=== PATIENT | male | born 1970 | race Caucasian/White ===

== ENCOUNTER → 2018-02-27 16:01 | Outpatient (CLI) | payer BC, SELFPAY ==
[2018-02-27 17:36] LABS: D-Dimer Quantitative (DVT/PE) 0.37 FEU/ug/m (0.27-0.49)
== END ==
PROVIDERS: Visit Provider Internal Medicine Critical Care Medicine
DX: I26.99 Other pulmonary embolism without acute cor pulmonale (principal)
CPT/HCPCS: 36415; 85379

== ENCOUNTER 2018-06-23 06:35 | Emergency (ER) | payer BC, SELFPAY ==
[2018-06-23 06:36] VITALS: BP 140/90; PULSE 92; RESP 14; TEMP 36.6; O2SAT 97; BMI 34.6
--- NOTE | 2018-06-23 07:06 | ED.VISSUMM ---
- ER Visit Summary Date of Service: 06/23/18 Chief Complaint: Racing breathing, palpitations History of Present Illness: The patient is a 47 M who presents with what he describes as fast breathing. Started last night. He felt like he had palpitations every 6-10 beats as well. Patient is concerned because a history of pulmonary embolism in the past. He has not had a cough. He has been off his blood thinners for a few months. His PE was provoked by a knee surgery. He feels intermittently short of breath currently. He states this does feel different than his pulmonary embolism. He denies having any chest pain. He denies any other symptoms. Physical Examination: Vital signs reviewed. HEENT exam unremarkable. Heart is regular rate and rhythm without murmurs. Lungs are clear to auscultation. Abdomen is soft and nontender. Extremities reveal no edema. Skin exam normal. Neurologic exam normal. Test Results: EKG sinus rhythm with a rate of 78. No ST changes. Labs are normal except for a d-dimer 0.52. Chest x-ray reveals chronic changes. CTA of the chest reveals small pulmonary embolisms in the bilateral upper lobes and in the left lower lobe Emergency Department Course and Treatment: Patient was given aspirin. His d-dimer was slightly elevated so a CTA was ordered and it does show some small pulmonary emboli. Patient has been off his Eliquis for a couple of months. At this point, I believe that we should restart this. Patient is understanding. He does not want to stay in the hospital. I do not believe he needs to stay in the hospital. His PESI score is 56 which makes him very low risk for adverse complications. Patient will be started on Eliquis again. He will follow-up with Dr. Shahid who followed him previously Treatment Plan: [] Disposition: Discharge Impression: Pulmonary embolisms This note was generated with [employer] software. It may contain incorrect words, spelling, and punctuation that were not noted in review of the chart prior to signing ED Disposition - Plan for ED Patient: Chief Complaint: General Illness Referrals: [facility] [address] Doctor,Out of [Primary Care Provider] -
[2018-06-23 07:18] VITALS: O2SAT 95
[2018-06-23] MEDS: Aspirin 81 MG TAB.CHEW 324 MG PO (07:18)
[2018-06-23 07:27] LABS: Anion Gap 10 (5-15); BUN 18 mg/dL (7-18); BUN/Creat Ratio 14.5 RATIO (10-20); Calcium,Total 8.5 mg/dL (8.5-10.1); Chloride 106 mmol/L (98-107); Creatinine, Serum 1.24 mg/dL (0.70-1.30); EST Glomerular Filtration Rate 67 mL/min (>60); Est Glom Filt Rate - Afr Amer 81 mL/min (>60); Estimated Creatinine Clearance 84.12 ml/min; Glucose 81 mg/dL (74-106); Potassium 3.6 mmol/L (3.5-5.1); Sodium Level 141 mmol/L (136-145)
[2018-06-23 07:33] LABS: Absolute Lymphocyte Count 2.45 X10^3/ul (0.83-4.51); Absolute Neutrophil Count 5.2 X10^3/uL (2.0-7.7); Basophil# 0.05 X10^3/uL; Basophil% 0.6 % (0-1); Eosinophil# 0.18 X10^3/uL; Eosinophils% 2.1 % (0-5); Hematocrit 44.3 % (40-54); Hemoglobin 15.5 g/dl (13.0-16.5); Lymphocyte # 2.45 X10^3/ul (4.0); Lymphocyte % 28.9 % (19-41); Mean Corpuscular Hgb 29.8 pg (27.0-32.0); Mean Platelet Vol. 10.3 fl (6.2-12.0); Monocyte# 0.62 X10^3/uL; Monocyte% 7.3 % (0-10); Neutrophil # 5.17 X10^3/uL (2.7-7.7); Neutrophil % 60.9 % (47-70); Platelet Count 231 K/mm3 (150-450); RBC Distribution Width CV 13.3 % (11.6-14.6); RBC Distribution Width SD 41.6 fl (35.1-43.9); Red Blood Count 5.21 M/mm3 (4.6-6.2); White Blood Count 8.5 K/mm3 (4.4-11.0)
[2018-06-23 07:45] LABS: D-Dimer Quantitative (DVT/PE) 0.52 FEU/ug/m (0.27-0.49)
--- NOTE | 2018-06-23 07:48 | ED.RN ---
lab called with critical lab results Radha mcgowan r0.52. Dr. Beckman made aware. orders to be placed
[2018-06-23 08:12] LABS: POSITIVE COUNT NO; POSITIVE DIFFERENTIAL NO; POSITIVE MORPHOLOGY NO
--- NOTE | 2018-06-23 08:50 | ED.RN ---
CANNOT OBTAIN OLD EKG; MUSE IS DOWN
--- NOTE | 2018-06-23 08:53 | ED.DEP ---
ED Disposition - Plan for ED Patient: Disposition: Home or Assisted Living Chief Complaint: General Illness Diagnosis: Pulmonary embolism Instructions: Pulmonary Embolism Prescriptions: Apixaban [Eliquis] 5 mg PO BID #74 tab Referrals: [facility] Doctor,Out of [Primary Care Provider] -
[2018-06-23] MEDS: APIXABAN 5 MG TABLET 10 MG PO (09:23)
[2018-06-23 09:34] VITALS: BP 124/90; PULSE 75; RESP 14; O2SAT 95
[2018-06-28 15:03] LABS: Protein C Antigen 108 % (60-150); Protein C, Functional 117 % (73-180)
[2018-06-28 15:37] LABS: Anti-Cardiolipin Ab, IgG, Qn < 9 GPL U/mL (0-14); Anti-Cardiolipin Ab, IgM, Qn < 9 MPL U/mL (0-12); Anti-Thrombin 3 AG, Immunol 106 % (72-124); Antithrombin 3 Function 108 % (75-135); Beta-2-Glycoprotein I IgA <9 (0-25); Beta-2-Glycoprotein I IgG <9 (0-20); Beta-2-Glycoprotein I IgM <9 (0-32)
== END 2018-06-23 09:36 | disposition home or self-care (01) ==
PROVIDERS: Emergency Provider Emergency Medicine
DX: I26.99 Other pulmonary embolism without acute cor pulmonale (principal); Z86.711 Personal history of pulmonary embolism
CPT/HCPCS: 71045; 71275; 80048; 81240; 81241; 81291; 84484; 85025; 85300; 85301; 85302; 85303; 85379; 86146; 86147; 93005; 99284; Q9967; A4216

== ENCOUNTER → 2018-10-06 19:59 | Outpatient (CLI) | payer BC, SELFPAY | PROVIDERS: Family Provider Student in an Organized Health Care Education/Training Program; PCP Student in an Organized Health Care Education/Training Program; Visit Provider Internal Medicine Critical Care Medicine | DX: G47.10 Hypersomnia, unspecified (principal) | CPT/HCPCS: 95810 ==

== ENCOUNTER → 2018-12-01 20:00 | Outpatient (CLI) | payer BC, SELFPAY ==
[2018-11-17 16:10] VITALS: BMI 35.9
== END ==
PROVIDERS: Family Provider Student in an Organized Health Care Education/Training Program; PCP Student in an Organized Health Care Education/Training Program; Referring Provider Nurse Practitioner Acute Care; Visit Provider Nurse Practitioner Acute Care
DX: G47.33 Obstructive sleep apnea (adult) (pediatric) (principal)
CPT/HCPCS: 95811

== ENCOUNTER 2019-10-12 20:45 | Emergency (ER) | payer BC, SELFPAY ==
[2019-05-17 06:34] VITALS: BMI 36.8
[2019-10-12 20:46] VITALS: BP 160/93; PULSE 81; RESP 20; TEMP 35.7; O2SAT 99; BMI 38.3
--- NOTE | 2019-10-12 21:40 | ED.VISSUMM ---
- ER Visit Summary Date of Service: 10/12/19 Chief Complaint: Tongue laceration History of Present Illness: The patient is a 48 M who sustained a tongue laceration. He was eating food and bit his tongue. He has tried to get the bleeding to stop but cannot. He is on Eliquis for history of PE. He tried holding pressure for 15 minutes but it still bled for about an hour. He denies any lightheadedness or dizziness. He states that now that he is here the bleeding has slowed down. Physical Examination: Vital signs reviewed. Mouth exam reveals a punctate bite wound on the top of the tongue. There is no bleeding at this time. He denies any pain. The rest of his physical exam is unremarkable Test Results: None performed Emergency Department Course and Treatment: The patient was observed here in the emergency department. There is no return of bleeding. The next time he will try to hold pressure longer to get this to stop. Treatment Plan: [] Disposition: Discharge Impression: Punctate tongue laceration This note was generated with [employer] dictation software. It may contain incorrect words, spelling, and punctuation that were not noted in review of the chart prior to signing ED Disposition - Plan for ED Patient: Disposition: Home or Assisted Living Instructions: LACERATION, All Referrals: Eugene Herman MD [Primary Care Provider] -
[2019-10-12 21:55] VITALS: BP 150/74; PULSE 76; RESP 16; O2SAT 98
== END 2019-10-12 21:56 | disposition home or self-care (01) ==
PROVIDERS: Emergency Provider Emergency Medicine; Family Provider Family Medicine; PCP Family Medicine
DX: S01.552A Open bite of oral cavity, initial encounter (principal); X58.XXXA Exposure to other specified factors, initial encounter; Y93.9 Activity, unspecified; Y92.9 Unspecified place or not applicable; Y99.9 Unspecified external cause status; Z79.01 Long term (current) use of anticoagulants; Z86.711 Personal history of pulmonary embolism
CPT/HCPCS: 99282

== ENCOUNTER → 2019-12-11 16:44 | Outpatient (CLI) | payer BC, SELFPAY ==
[2019-12-11 18:01] LABS: Hematocrit 24.5 % (40-54); Hemoglobin 8.6 g/dL (13.0-16.5); Mean Corp Hgb Conc 35.1 g/dL (32-36); Mean Corpuscular Hgb 33.6 pg (27.0-32.0); Mean Corpuscular Volume 95.7 fL (80-94); Mean Platelet Vol. 12.9 fl (6.2-12.0); POSITIVE COUNT YES; POSITIVE DIFFERENTIAL YES; POSITIVE MORPHOLOGY YES; RBC Distribution Width CV 15.5 % (11.6-14.6); RBC Distribution Width SD 52.5 fl (35.1-43.9); Red Blood Count 2.56 M/mm3 (4.6-6.2); White Blood Count 1.5 K/mm3 (4.4-11.0)
[2019-12-11 18:44] LABS: ALB/GLOB Ratio 1.2 RATIO (0.9-2.4); AST(SGOT) 19 U/L (15-37); Alanine Aminotransfer ALT/SGPT 33 U/L (16-61); Alkaline Phosphatase 63 U/L (45-117); Anion Gap 4 (5-15); BUN 18 mg/dL (7-18); BUN/Creat Ratio 18.9 RATIO (10-20); Calcium,Total 8.8 mg/dL (8.5-10.1); Chloride 108 mmol/L (98-107); Creatinine, Serum 0.95 mg/dL (0.70-1.30); EST Glomerular Filtration Rate 90 mL/min (>60); Est Glom Filt Rate - Afr Amer 108 mL/min (>60); Globulin 3.2 g/dL (2.2-4.2); Glucose 93 mg/dL (74-106); Potassium 3.7 mmol/L (3.5-5.1); Protein, Total 7.2 g/dL (6.4-8.2); Sodium Level 139 mmol/L (136-145); Thyroid Stim Hormone (TSH) 0.79 uIU/mL (0.358-3.74)
[2019-12-11 18:48] LABS: Lymphocyte 70 % (19-41); Monocyte 10 % (0-10); Neutrophil-Segmented 16 % (47-70); Total Cells Counted 50 (MANUAL DIFF)
[2019-12-11 19:31] LABS: Platelet Count 20 K/mm3 (150-450)
[2019-12-11 19:32] LABS: Differential Indicated MANUAL DIFF
[2019-12-11 19:53] LABS: Absolute Neutrophil Count 0.2 X10^3/uL (2.0-7.7)
[2019-12-11 19:54] LABS: Absolute Lymphocyte Count 1.04 X10^3/uL (0.83-4.51)
[2019-12-11 20:01] LABS: Blast 4 % (0-0)
[2019-12-11 20:02] LABS: Macrocytosis RARE
[2019-12-11 20:03] LABS: Platelet Estimate MKD DEC (ADEQ); Polychromasia RARE
[2019-12-12 13:19] LABS: Pathologist Review Reviewed
== END ==
PROVIDERS: PCP Family Medicine; Referring Provider Family Medicine; Visit Provider Family Medicine
DX: R60.0 Localized edema (principal)
CPT/HCPCS: 36415; 80053; 84443; 85025

== ENCOUNTER → 2019-12-12 13:18 | Outpatient (CLI) | payer BC, SELFPAY ==
--- NOTE | 2019-12-12 13:23 | RAD_ITS ---
STUDY: X-RAY CHEST REASON FOR EXAM: Male, 49 years old. Temporary low platelet count -- some sob TECHNIQUE: PA and lateral views of the chest. COMPARISON: Comparison is made with prior examination dated June 23, 2018. FINDINGS: The lungs are clear and expanded. Scattered calcified granulomas. There is no demonstrated pleural abnormality. Normal size heart. Normal mediastinum and aury. Normal visualized pulmonary arteries. Normal visualized aortic arch and descending thoracic aorta. There are diffuse degenerative changes of the visualized thoracic spine. Normal visualized ribs, clavicles, and shoulders. There is no demonstrated abnormality of the visualized soft tissue structures of the upper abdomen. RAD/Chest PA and Lateral IMPRESSION: No acute abnormality is seen. Electronically Signed: Sampson Marroquin, at 14:12 EST , Service support ,
[2019-12-12 14:27] LABS: Absolute Lymphocyte Count 0.64 X10^3/uL (0.83-4.51); Absolute Neutrophil Count 0.2 X10^3/uL (2.0-7.7); Hematocrit 22.3 % (40-54); Lymphocyte # 0.64 X10^3/ul (4.0); Lymphocyte % 50.4 % (19-41); Mean Corp Hgb Conc 35.9 g/dL (32-36); Mean Corpuscular Hgb 33.9 pg (27.0-32.0); Mean Corpuscular Volume 94.5 fL (80-94); Monocyte# 0.33 X10^3/uL; NRBC Flagged by Analyzer 3.1 % (0-5); Neutrophil # 0.16 X10^3/uL (2.7-7.7); Neutrophil % 12.6 % (47-70); POSITIVE COUNT YES; POSITIVE DIFFERENTIAL YES; POSITIVE MORPHOLOGY YES; Platelet Count 18 K/mm3 (150-450); RBC Distribution Width CV 15.5 % (11.6-14.6); RBC Distribution Width SD 50.5 fl (35.1-43.9); Red Blood Count 2.36 M/mm3 (4.6-6.2); White Blood Count 1.3 K/mm3 (4.4-11.0)
[2019-12-12 14:30] LABS: International Normalized Ratio 1.4; Partial Thromboplast Time 29.8 Seconds (24.1-36.2); Prothrombin Time (Protime)PT. 16.7 SECONDS (11.7-14.9)
[2019-12-12 14:47] LABS: LDH 315 U/L (87-241); Vitamin B12 > 2000 pg/mL (211-911)
[2019-12-13 11:45] LABS: Pathologist Review Reviewed
== END ==
PROVIDERS: PCP Family Medicine; Referring Provider Family Medicine; Visit Provider Family Medicine
DX: D69.6 Thrombocytopenia, unspecified (principal)
CPT/HCPCS: 71046; 82607; 82746; 83615; 84550; 85025; 85610; 85730

== ENCOUNTER 2019-12-13 20:05 | Emergency (ER) | payer BC, SELFPAY ==
[2019-12-13 20:07] VITALS: BP 155/89; PULSE 98; RESP 14; TEMP 36.7; O2SAT 98; BMI 35.9
--- NOTE | 2019-12-13 20:26 | CT_ITS ---
STUDY: CTA CHEST REASON FOR EXAM: Male, 49 years old. PT STATED HX OF PE, ABNORMAL LAB WORK TODAY RADIATION DOSAGE (If Supplied By Facility): CTDIvol = ( 10.29 ) mGy, DLP = ( 608.32 ) mGycm TECHNIQUE: The examination was performed with the intravenous administration of 100ml isovue 370. Post-processing of the angiographic images was performed, with multiplanar reformation and 3D reconstruction. Individualized dose optimization techniques were used for this CT. COMPARISON: June 13, 2018 FINDINGS: Normal enhancement of the main pulmonary artery and right and left pulmonary arteries. There is suboptimal enhancement of the bilateral peripheral pulmonary arteries. There are filling defects within subsegmental pulmonary arteries within the right upper and bilateral lower lobes consistent with underlying emboli. Normal thoracic aorta and visualized great vessels. There is no demonstrated aortic dissection. Normal heart and pericardium. Normal mediastinum. Normal hilar regions. Normal visualized trachea and bronchi. The lungs are well expanded. Normal pulmonary parenchyma. Normal pleura. Normal chest wall structures. There are degenerative changes of thoracic spine. Normal visualized upper abdomen. CT/CTA Chest W/WO Contrast IMPRESSION: Bilateral pulmonary emboli within subsegmental pulmonary arteries. N.B. : The above information has been verbally conveyed by Maribel Au MD to Ulisses Daniels MD, on 12/13/2019 21:26:10 (ET). Electronically Signed: Maribel Au MD at 21:27 EST Tel , Service support ,
--- NOTE | 2019-12-13 20:26 | EKG12_ITS ---
Test Reason : DYSRYTHMIA Blood Pressure : / mmHG Vent. Rate : 088 BPM Atrial Rate : 088 BPM P-R Int : 156 ms QRS Dur : 098 ms QT Int : 388 ms P-R-T Axes : 039 034 016 degrees QTc Int : 469 ms Normal sinus rhythm Normal ECG Confirmed by KENYA ANDERSON, RUSH ([id number]), editor city MARLA CARDONA ([id number]) on 12/17/2019 10:30:32 AM Referred By: ZULEYMA Confirmed By:RACHEL ZAMBRANO MD
[2019-12-13 20:45] VITALS: O2SAT 98
[2019-12-13 21:02] LABS: Hemoglobin 8.3 g/dL (13.0-16.5); Mean Corp Hgb Conc 36.1 g/dL (32-36); Mean Corpuscular Hgb 34.2 pg (27.0-32.0); Mean Corpuscular Volume 94.7 fL (80-94); Mean Platelet Vol. 11.3 fl (6.2-12.0); POSITIVE COUNT YES; POSITIVE DIFFERENTIAL YES; POSITIVE MORPHOLOGY YES; Platelet Count 16 K/mm3 (150-450); RBC Distribution Width CV 15.5 % (11.6-14.6); RBC Distribution Width SD 51.4 fl (35.1-43.9); Red Blood Count 2.43 M/mm3 (4.6-6.2)
[2019-12-13 21:23] LABS: Anion Gap 4 (5-15); BUN 16 mg/dL (7-18); BUN/Creat Ratio 13.7 RATIO (10-20); Calcium,Total 8.5 mg/dL (8.5-10.1); Chloride 110 mmol/L (98-107); Creatinine, Serum 1.17 mg/dL (0.70-1.30); EST Glomerular Filtration Rate 71 mL/min (>60); Est Glom Filt Rate - Afr Amer 86 mL/min (>60); Estimated Creatinine Clearance 87.26 ml/min; Glucose 118 mg/dL (74-106); Potassium 3.2 mmol/L (3.5-5.1); Sodium Level 141 mmol/L (136-145)
[2019-12-13 21:43] LABS: International Normalized Ratio 1.4; Partial Thromboplast Time 27.5 Seconds (24.1-36.2); Prothrombin Time (Protime)PT. 17.3 SECONDS (11.7-14.9)
[2019-12-13 21:46] LABS: Anisocytosis 1+; Basophilic Stippling RARE; Platelet Estimate MOD DEC (ADEQ); Polychromasia 1+; Tear Drop Cell RARE
[2019-12-13 21:52] LABS: Eosinophils% 0.6 % (0-5); Monocyte% 36.5 % (0-10); Neutrophil # 0.21 X10^3/uL (2.7-7.7); Neutrophil % 12.3 % (47-70)
[2019-12-13 21:53] LABS: Absolute Lymphocyte Count 0.68 X10^3/uL (0.83-4.51); Absolute Neutrophil Count 0.2 X10^3/uL (2.0-7.7); Eosinophil# 0.01 X10^3/uL; Lymphocyte # 0.68 X10^3/ul (4.0); Monocyte# 0.62 X10^3/uL
[2019-12-13 21:56] LABS: White Blood Count 1.7 K/mm3 (4.4-11.0)
[2019-12-13 22:03] LABS: Uric Acid 5.8 mg/dL (3.5-7.2)
[2019-12-13 22:09] LABS: Fibrinogen 156 mg/dl (203-444)
[2019-12-13 22:24] VITALS: BP 149/73; PULSE 84; RESP 16; O2SAT 98
--- NOTE | 2019-12-13 22:56 | CT_ITS ---
HISTORY: DIZZY/CROCKETT. Pt was injected earlier this evening with 100ml Isovue 370 EXAMINATION: CT Head or Brain W/O Contrast Injection TECHNIQUE: Multiple axial images were obtained of the brain without intravenous contrast. A radiation dose optimization technique was used for this scan. IV Contrast dosage and agent: None. COMPARISON: None FINDINGS: Intravenous contrast infusion by recent CTA chest exam. Normal ventricles and normal millan-white matter differentiation. No intracranial mass, hemorrhage, or acute parenchymal abnormality. Posterior fossa structures are on remarkable. No suspicious extra-axial fluid collection. As visualized, the mastoids and paranasal sinuses are clear. CT/Brain/Head without Contrast IMPRESSION: Normal CT brain without contrast. Individualized dose optimization techniques were used for this CT. at 2341 Reported and signed by: Fran Apple MD Electronically Signed: Fran Apple, at 23:40 EST Tel , Service support ,
--- NOTE | 2019-12-13 23:25 | ED.VISSUMM ---
- ER Visit Summary Date of Service: 12/13/19 Chief Complaint: Low blood counts History of Present Illness: The patient is a 49 M referred to the ED by his PCP for low blood counts. The patient said his white count, hemoglobin, and platelets were low. No history of this. He does report a mild headache and also mild shortness of breath with exertion. He does have a history of PE which later recurred after treatment and has since been on Eliquis--plan was anticoagulation for life. It was thought that his PE was provoked after an orthopedic surgery, and hypercoagulability testing was negative. His PCP advised him to stop the Eliquis today. No other issues today. Physical Examination: Afebrile and vital signs unremarkable. Head and neck unremarkable. Heart regular. Lungs clear. Abdomen soft. Skin appears normal. Test Results: EKG shows sinus rhythm at a rate of 88. White count 1.7, hemoglobin 8.3, platelets 16, type and screen pending. Potassium 3.2, chloride 110, anion gap 4, glucose 18. INR 1.4, PTT 27.5, fibrinogen 156, uric acid normal. Troponin normal. CT chest showed bilateral subsegmental PEs. CT brain is pending. Emergency Department Course and Treatment: Patient presents with pancytopenia. I spoke with Dr. Stoner who was on-call for his oncologist, Dr. Dill. We reviewed his results and his pathology. There was concern for leukemia, and he advised transfer to [facility]. Patient was agreeable. I spoke with the oncology fellow, Dr. Long. She advised adding on the fibrinogen and uric acid. I received a call back from the call center, and the patient was accepted to the ED by Dr. Ferreira. There was some delay in the transfer as the hospital was full and the ED was on diversion. Patient does have bilateral PEs, but they are subsegmental. His oxygen is normal. He is not having chest pain or shortness of breath. Will continue to hold anticoagulation. Prior to transfer, the patient is complaining of increasing dizziness. Will check a CT brain. I do not see anything obvious, but the official read is pending. Patient will be transferred with his pathology slides, results, and imaging discs. Treatment Plan: As above Disposition: Transfer to [facility] ED Impression: 1. Pancytopenia 2. Bilateral subsegmental pulmonary emboli This note was generated with Dragon dictation software. It may contain incorrect words, spelling, and punctuation that were not noted in review of the chart prior to signing ED Disposition - Plan for ED Patient: Referrals: Eugene Herman MD [Primary Care Provider] -
[2019-12-13 23:49] VITALS: BP 151/81; PULSE 84; RESP 18; TEMP 36.6; O2SAT 99
[2019-12-14 14:49] LABS: Pathologist Review Reviewed
== END 2019-12-13 23:51 | disposition short-term general hospital (02) ==
LOC: ED 20:38
PROVIDERS: Emergency Provider Emergency Medicine; PCP Family Medicine
DX: D61.818 Other pancytopenia (principal); I26.99 Other pulmonary embolism without acute cor pulmonale; Z79.01 Long term (current) use of anticoagulants; Z86.711 Personal history of pulmonary embolism
CPT/HCPCS: 70450; 71275; 80048; 84484; 84550; 85025; 85384; 85610; 85730; 86850; 86900; 86901; 93005; 99285; Q9967; A4216

== ENCOUNTER → 2020-01-28 08:44 | Outpatient (CLI) | payer BC, SELFPAY ==
[2020-01-14 13:01] VITALS: BMI 34.4
== END ==
PROVIDERS: PCP Family Medicine; Referring Provider Internal Medicine Medical Oncology; Visit Provider Internal Medicine Medical Oncology
DX: C92.40 Acute promyelocytic leukemia, not having achieved remission (principal)
CPT/HCPCS: 93005

== ENCOUNTER → 2020-02-11 08:46 | Outpatient (CLI) | payer BC, SELFPAY ==
[2020-02-07 11:00] VITALS: BMI 34.8
== END ==
PROVIDERS: PCP Family Medicine; Referring Provider Nurse Practitioner Family; Visit Provider Nurse Practitioner Family
DX: C95.90 Leukemia, unspecified not having achieved remission (principal); Z79.899 Other long term (current) drug therapy
CPT/HCPCS: 93005

== ENCOUNTER → 2020-02-18 10:13 | Outpatient (CLI) | payer BC, SELFPAY ==
[2020-02-15 08:57] VITALS: BMI 34.8
--- NOTE | 2020-02-18 10:20 | EKG12_ITS ---
Test Reason : CHEMO Blood Pressure : / mmHG Vent. Rate : 082 BPM Atrial Rate : 082 BPM P-R Int : 134 ms QRS Dur : 088 ms QT Int : 390 ms P-R-T Axes : 026 064 029 degrees QTc Int : 455 ms Normal sinus rhythm Normal ECG When compared with ECG of 11-FEB-2020 08:52, No significant change was found Confirmed by JAVIER ANDERSON, CHUCK ([id number]), editor greeting card MARLA CARDONA ([id number]) on 02/18/2020 10:55:28 AM Referred By: Rosemary Mendez Confirmed By:CHUCK HERRERA MD
== END ==
PROVIDERS: PCP Family Medicine; Referring Provider Nurse Practitioner Family; Visit Provider Nurse Practitioner Family
DX: C92.40 Acute promyelocytic leukemia, not having achieved remission (principal)
CPT/HCPCS: 93005

== ENCOUNTER → 2020-03-24 09:17 | Outpatient (CLI) | payer BC, SELFPAY ==
[2020-02-25 11:28] VITALS: BMI 34.9
--- NOTE | 2020-03-24 09:23 | EKG12_ITS ---
Test Reason : PRE-CHEMO Blood Pressure : / mmHG Vent. Rate : 084 BPM Atrial Rate : 084 BPM P-R Int : 144 ms QRS Dur : 094 ms QT Int : 368 ms P-R-T Axes : 009 014 007 degrees QTc Int : 434 ms Normal sinus rhythm Normal ECG When compared with ECG of 18-FEB-2020 10:29, No significant change was found Confirmed by JAVIER ANDERSON, CHUCK ([id number]), editor in chief MARLA CARDONA ([id number]) on 03/24/2020 2:14:48 PM Referred By: Rosemary Mendez Confirmed By:CHUCK HERRERA MD
== END ==
PROVIDERS: PCP Family Medicine; Referring Provider Nurse Practitioner Family; Visit Provider Nurse Practitioner Family
DX: C92.40 Acute promyelocytic leukemia, not having achieved remission (principal)
CPT/HCPCS: 93005

== ENCOUNTER 2020-03-29 16:27 | Emergency (ER) | payer BC, SELFPAY ==
[2020-03-25 10:52] VITALS: BMI 35.8
[2020-03-29 16:29] VITALS: BP 138/90; PULSE 100; RESP 15; TEMP 37.2; O2SAT 97; BMI 36.8
[2020-03-29 16:32] VITALS: BP 138/90; PULSE 100; RESP 15; TEMP 37.2; O2SAT 97
--- NOTE | 2020-03-29 16:45 | EKG12_ITS ---
Test Reason : CP Blood Pressure : / mmHG Vent. Rate : 088 BPM Atrial Rate : 088 BPM P-R Int : 140 ms QRS Dur : 098 ms QT Int : 382 ms P-R-T Axes : 026 064 029 degrees QTc Int : 462 ms Normal sinus rhythm Normal ECG Confirmed by JAVIER ANDERSON, CHUCK ([id number]), order editor MARLA CARDONA ([id number]) on 04/01/2020 3:07:05 PM Referred By: Confirmed By:CHUCK HERRERA MD
--- NOTE | 2020-03-29 16:46 | ED.VIS.DYS ---
History of Present Illness Chief Complaint: Shortness of Breath Informant: Patient Onset: Yesterday Activity at onset: Light Activity Timing: Intermittent Quality: Dyspnea on exertion Current Severity: Mild Maximum Severity: Moderate Worsened by: Exertion. Not Worsened By: Coughing, Lying flat Relieved by: Rest Associated Symptoms: Negative for: Cough, Ear pain, Fever, Rhinorrhea, Sore throat, Sweats Chest Pain: Continuous, Pressure. Negative for: Pleuritic Narrative: Noticed dyspnea with exertion last night in his house, persistent this morning along with chest discomfort that also started last night and has been persistent. It is nonpleuritic. He has a history of pulmonary emboli for which he has been on Eliquis, does not think this feels similar. No radiation of the discomfort. It is just left of sternum, lower chest. He just had second round of initial chemotherapy for a rare form of leukemia for which he is on arsenic and something else that he does not remember. States he feels very malaise, denies any fevers or chills or cough. No leg swelling or rashes. - Past Medical History (1) Acute promyelocytic leukemia Status: Chronic (2) Pulmonary embolism Status: Chronic Comment: Lifelong anticoagulation (3) VINCENT (obstructive sleep apnea) Status: Chronic Comment: Initial AHI 26.1 events per hour (4) Osteoarthritis Status: Chronic Past Medical History - Allergies and Home Meds Allergies/Adverse Reactions: Allergies formaldehyde Adverse Reaction (Verified 03/29/20 16:33) Rash Primary Care Physician: Eugene Herman MD [Primary Care Provider] - Surgical History: tonsillectomy, - - Prior right knee ACL repair with hardware, tonsillectomy, epididymis surgery. Smoking Status: Never smoker - Family History Maternal Family History: Family History (Last Reviewed 03/24/20 @ 10:26 by Perla Becerril) Father DVT (deep venous thrombosis) Alcoholism Sister Heart disease Atrial fibrillation Grandmother Small cell carcinoma of lung Aunt Multiple myeloma Uncle Colon cancer Multiple myeloma Unknown Brain cancer Son Autism Family History: Reports: - - Mother with a history of COPD and heart failure, at age 58. Paternal Family History: Family History (Last Reviewed 03/24/20 @ 10:26 by Perla Becerril) Father DVT (deep venous thrombosis) Alcoholism Sister Heart disease Atrial fibrillation Grandmother Small cell carcinoma of lung Aunt Multiple myeloma Uncle Colon cancer Multiple myeloma Unknown Brain cancer Son Autism Family History: Reports: - - Father with a history of hypertension in addition to liver disease with a history of alcohol abuse. Review of Systems General: Reports: Malaise. Denies: Chills, Fever, Sweats Eyes: Denies: Visual changes - bilaterally, Diplopia ENT: Denies: Bilateral ear pain, Rhinorrhea, Sore throat Cardiovascular: Reports: Chest pain. Denies: Palpitations Respiratory: Reports: Dyspnea. Denies: Cough, Dyspnea on exertion Gastrointestinal: Denies: Abdominal pain, Nausea, Vomiting, Diarrhea, Melena, Hematochezia Genitourinary: Denies: Dysuria, Hematuria, Frequency Musculoskeletal: Denies: Myalgias, Neck pain, Back pain, Swelling, Extremity Pain Skin: Denies: Rash, Wounds Neurological: Denies: Headache, Weakness, Numbness Physical Exam Vital Signs/Narrative: Vital Signs Temp Pulse Resp BP Pulse Ox 03/29/20 16:29 99.0 F 100 15 138/90 H 97 Inital Vital Signs reviewed: Yes General: Well nourished, Well developed, No Acute Distress Head: Normocephalic, Atraumatic Eyes: Perrl, EOMI ENT: Moist mucous membranes, No rhinorrhea Neck: Supple, Nontender Cardiovascular: Regular rate, Regular rhythm, No murmurs Respiratory: No distress, CTA bilaterally, Chest tenderness Abdomen: Soft, Nondistended, Normal bowel sounds, No masses - Just left the lower sternum, reproduces the patient's discomfort which is mild. No splinting on deep inspiration., Tender. Negative for: Guarding, Rebound tenderness Back: Nontender, Normal Inspection. Negative for: CVA tenderness Extremities: Nontender, No edema. Negative for: Calf Tenderness Skin: Normal color, No rash - There is a tattoo on the patient's right calf that is multicolored and unusual appearing, he states that his all tattoo in his skin appears as usual there without a rash, No Trauma Neurological: Alert, Oriented x3, Cranial nerves II-XII grossly intact, Normal Strength, Normal Sensation, Normal Gait Psychological: Normal affect, Normal Mood Diagnostic/Tx/Re-eval Impressions Chest X-Ray 03/29/20 17:00 IMPRESSION: Normal x-ray examination of the chest. Electronically Signed: Pramod Jordan, at 17:23 EDT Tel , Service support , 03/29/20 16:45 Chest PA and Lateral [RAD] Stat Laboratory Results 03/29/20 03/29/20 16:55 16:55 WBC 9.2 RBC 4.73 Hgb 14.2 Hct 43.1 MCV 91.1 MCH 30.0 MCHC 32.9 RDW Std Deviation 49.6 H RDW Coeff of Melody 14.9 H Plt Count 235 MPV 10.3 Immature Gran % (Auto) 2.900 H Neut % (Auto) 62.4 Lymph % (Auto) 25.4 [place] % (Auto) 6.8 Eos % (Auto) 2.1 Baso % (Auto) 0.4 Absolute Neuts (auto) 5.8 Absolute Lymphs (auto) 2.34 Nucleated RBC % 1.7 Sodium 140 Potassium 3.8 Chloride 108 H Carbon Dioxide 26.0 Anion Gap 6 BUN 17 Creatinine 1.10 Estim Creat Clear Calc 92.81 Est GFR (MDRD) Af Amer 92 Est GFR (MDRD) Non-Af 76 BUN/Creatinine Ratio 15.5 Glucose 104 Calcium 8.5 Total Bilirubin 0.30 AST 16 ALT 30 Alkaline Phosphatase 79 Troponin I < 0.015 Total Protein 6.9 Albumin 3.3 Globulin 3.6 Albumin/Globulin Ratio 0.9 - Rhythm Strip Rhythm Strip: Sinus Rhythm Rate: 88 Ectopy: None - EKG Initial EKG Interpretation: Sinus Rhythm, No Acute Injury Pattern - Unremarkable EKG Prior: Unchanged Treatment - Dyspnea: Albuterol, - - GI cocktail Repeat Evaluation: Improved - May be a little after the albuterol but not after the GI cocktail - Medical Decision Making Labs are all unremarkable, chest x-ray is normal and EKG is normal. He has had continuous chest discomfort for most of the day, so with a negative cardiac work-up I do not think he needs further emergent testing for his heart. His chest discomfort is reproducible but he seems to have some other tightness inside. GI cocktail did not really help any of that, so I gave him an albuterol treatment to see if that would help, pointing to more likely pulmonary causes, he states maybe it helped some, it helped to break things up and he was coughing more, and then felt a little bit better but he still had it. I discussed with Dr. Dill, given how malaise the patient is feeling, which he states he felt several days ago, it is possible some of this could be side effect from some of his chemotherapy medication. He states we do not need to do any testing on that right now, and that he would be happy to follow-up with the patient as an outpatient. Patient is comfortable going home, he was prescribed an albuterol inhaler to use in case he felt like it would help and he needed it. I do not think he needs to have CT angiography since he is treated with Eliquis, and does not have pleuritic discomfort or resting tachycardia. ED Disposition - Plan for ED Patient: Disposition: Home or Assisted Living Diagnosis: Dyspnea, Chest pain, unspecified, Acute promyelocytic leukemia Instructions: ED Chest Pain NonCardiac Prescriptions: Albuterol Inhaler [Ventolin Hfa] 1 - 2 puff INHALATION Q4H PRN PRN #1 inhaler PRN Reason: Wheezing Prescription Printed Referrals: Sebas Dill MD [NON-STAFF] - 3-5 Days if not improving
[2020-03-29] MEDS: Mag Hydrox/Al Hydrox/Simeth 30 ML UDC PO (16:57)
--- NOTE | 2020-03-29 17:00 | RAD_ITS ---
STUDY: X-RAY CHEST REASON FOR EXAM: Male, 49 years old. Since treatment tuesday (arsenic trioxide and ANTRA) pt has been SOB with some epigastric pain and dizziness. Pt being treated for APL. TECHNIQUE: PA and lateral chest COMPARISON: 12/12/2019 FINDINGS: The lungs are clear and expanded. There is no demonstrated pleural abnormality. There is no significant change. Normal size heart. Normal mediastinum and aury. Normal visualized pulmonary arteries. Normal visualized aortic arch and descending thoracic aorta. Normal visualized thoracic spine. Normal visualized ribs, clavicles, and shoulders. There is no demonstrated abnormality of the visualized soft tissue structures of the upper abdomen. RAD/Chest PA and Lateral IMPRESSION: Normal x-ray examination of the chest. Electronically Signed: Pramod Jordan, at 17:23 EDT Tel , Service support ,
[2020-03-29 17:10] LABS: Absolute Lymphocyte Count 2.34 X10^3/uL (0.83-4.51); Absolute Neutrophil Count 5.8 X10^3/uL (2.0-7.7); Basophil# 0.04 X10^3/uL; Basophil% 0.4 % (0-1); Eosinophil# 0.19 X10^3/uL; Eosinophils% 2.1 % (0-5); Hematocrit 43.1 % (40-54); Hemoglobin 14.2 g/dL (13.0-16.5); Lymphocyte # 2.34 X10^3/ul (4.0); Lymphocyte % 25.4 % (19-41); Mean Corp Hgb Conc 32.9 g/dL (32-36); Mean Corpuscular Volume 91.1 fL (80-94); Mean Platelet Vol. 10.3 fl (6.2-12.0); Monocyte# 0.63 X10^3/uL; Monocyte% 6.8 % (0-10); NRBC Flagged by Analyzer 1.7 % (0-5); Neutrophil # 5.76 X10^3/uL (2.7-7.7); Neutrophil % 62.4 % (47-70); Platelet Count 235 K/mm3 (150-450); RBC Distribution Width CV 14.9 % (11.6-14.6); RBC Distribution Width SD 49.6 fl (35.1-43.9); Red Blood Count 4.73 M/mm3 (4.6-6.2); White Blood Count 9.2 K/mm3 (4.4-11.0)
[2020-03-29 17:19] LABS: ALB/GLOB Ratio 0.9 RATIO (0.9-2.4); AST(SGOT) 16 U/L (15-37); Alanine Aminotransfer ALT/SGPT 30 U/L (16-61); Albumin, Serum 3.3 g/dL (3.2-5.0); Alkaline Phosphatase 79 U/L (45-117); Anion Gap 6 (5-15); BUN 17 mg/dL (7-18); BUN/Creat Ratio 15.5 RATIO (10-20); Calcium,Total 8.5 mg/dL (8.5-10.1); Chloride 108 mmol/L (98-107); EST Glomerular Filtration Rate 76 mL/min (>60); Est Glom Filt Rate - Afr Amer 92 mL/min (>60); Estimated Creatinine Clearance 92.81 ml/min; Globulin 3.6 g/dL (2.2-4.2); Glucose 104 mg/dL (74-106); Potassium 3.8 mmol/L (3.5-5.1); Protein, Total 6.9 g/dL (6.4-8.2); Sodium Level 140 mmol/L (136-145)
[2020-03-29 17:31] VITALS: BP 131/81; PULSE 82; RESP 17; TEMP 37.3; O2SAT 95
[2020-03-29 19:49] VITALS: BP 131/83; PULSE 80; RESP 16; TEMP 36.5; O2SAT 97
[2020-03-29 19:56] VITALS: PULSE 84; RESP 14
[2020-03-29] MEDS: Albuterol 2.5 MG/3 ML VIAL.NEB. INHALATION (19:56)
[2020-03-29 21:45] VITALS: BP 135/81; PULSE 91; RESP 16; O2SAT 95
== END 2020-03-29 21:47 | disposition home or self-care (01) ==
PROVIDERS: Emergency Provider Emergency Medicine; PCP Family Medicine
DX: R06.00 Dyspnea, unspecified (principal); R07.9 Chest pain, unspecified; C92.40 Acute promyelocytic leukemia, not having achieved remission; M19.90 Unspecified osteoarthritis, unspecified site; G47.33 Obstructive sleep apnea (adult) (pediatric); Z79.01 Long term (current) use of anticoagulants; Z79.899 Other long term (current) drug therapy; Z86.711 Personal history of pulmonary embolism
CPT/HCPCS: 36592; 71046; 80053; 84484; 85025; 93005; 94640; 96360; 96361; 99284; J7040; A4216

== ENCOUNTER → 2020-05-19 09:20 | Outpatient (CLI) | payer BC, SELFPAY ==
[2020-05-11 08:50] VITALS: BMI 35.7
--- NOTE | 2020-05-19 09:24 | EKG12_ITS ---
Test Reason : CHEMO Blood Pressure : / mmHG Vent. Rate : 074 BPM Atrial Rate : 074 BPM P-R Int : 148 ms QRS Dur : 098 ms QT Int : 392 ms P-R-T Axes : 033 054 025 degrees QTc Int : 435 ms Normal sinus rhythm Normal ECG When compared with ECG of 14-APR-2020 09:01, No significant change was found Confirmed by JAVIER ANDERSON, CHUCK ([id number]), film editor MARLA CARDONA ([id number]) on 05/19/2020 11:56:34 AM Referred By: Rosemary Mendez Confirmed By:CHUCK HERRERA MD
== END ==
PROVIDERS: PCP Family Medicine; Referring Provider Nurse Practitioner Family; Visit Provider Nurse Practitioner Family
DX: C92.40 Acute promyelocytic leukemia, not having achieved remission (principal); Z79.899 Other long term (current) drug therapy
CPT/HCPCS: 93005

== ENCOUNTER → 2020-06-02 09:41 | Outpatient (CLI) | payer BC, SELFPAY ==
[2020-05-30 08:50] VITALS: BMI 36.9
--- NOTE | 2020-06-02 09:44 | EKG12_ITS ---
Test Reason : PRE-CANCER TX Blood Pressure : / mmHG Vent. Rate : 069 BPM Atrial Rate : 069 BPM P-R Int : 142 ms QRS Dur : 088 ms QT Int : 418 ms P-R-T Axes : 019 051 030 degrees QTc Int : 447 ms Normal sinus rhythm Normal ECG Confirmed by AJVIER ANDERSON, CHUCK ([id number]), film or videotape editor MARLA CARDONA ([id number]) on 06/06/2020 2:36:05 PM Referred By: Rosemary Mendez Confirmed By:CHUCK HERRERA MD
== END ==
PROVIDERS: PCP Family Medicine; Referring Provider Nurse Practitioner Family; Visit Provider Nurse Practitioner Family
DX: C92.40 Acute promyelocytic leukemia, not having achieved remission (principal)
CPT/HCPCS: 93005

== ENCOUNTER → 2020-06-09 08:28 | Outpatient (CLI) | payer BC, SELFPAY ==
[2020-06-06 09:13] VITALS: BMI 37.2
--- NOTE | 2020-06-09 08:32 | EKG12_ITS ---
Test Reason : Blood Pressure : / mmHG Vent. Rate : 079 BPM Atrial Rate : 079 BPM P-R Int : 144 ms QRS Dur : 088 ms QT Int : 384 ms P-R-T Axes : 036 065 037 degrees QTc Int : 440 ms Normal sinus rhythm Normal ECG When compared with ECG of 02-JUN-2020 10:00, No significant change was found Confirmed by JAVIER ANDERSON, CHUCK ([id number]), editor farm journal MARLA CARDONA ([id number]) on 06/09/2020 9:30:18 AM Referred By: Sebas Dill Confirmed By:CHUCK HERRERA MD
== END ==
PROVIDERS: PCP Family Medicine; Referring Provider Internal Medicine Medical Oncology; Visit Provider Internal Medicine Medical Oncology
DX: I49.9 Cardiac arrhythmia, unspecified (principal)
CPT/HCPCS: 93005

== ENCOUNTER 2020-06-24 10:27 | Emergency (ER) | payer BC, SELFPAY ==
[2020-06-09 09:26] VITALS: BMI 37.3
[2020-06-24 10:28] VITALS: BP 118/91; PULSE 93; RESP 16; TEMP 36.6; O2SAT 97; BMI 36.3
--- NOTE | 2020-06-24 11:15 | RAD_ITS ---
STUDY: X-RAY - LEFT FOOT CLINICAL: Male, 49 years old. PAIN IN CENTER OF LEFT FOOT TODAY TECHNIQUE: 3 view(s) of the foot. COMPARISON: None. FINDINGS: There is an enthesophyte involving the posterior superior calcaneus at the site of insertion of the Achilles tendon. Normal visualized subtalar, talonavicular, calcaneocuboid, tarsal and tarsometatarsal articulations. Normal metatarsi. Normal metatarsophalangeal joint of the great toe. Normal tibial and fibular sesamoid bones. Normal interphalangeal joint of the great toe. Normal phalanges of the great toe. Normal second through fifth metatarsophalangeal joints. Normal interphalangeal joints and phalanges of the lesser toes. The soft tissue structures are unremarkable. RAD/Foot min 3 Views IMPRESSION: Normal x-ray examination of the foot. Electronically Signed: Leighann Garcia, at 12:05 EDT Tel , Service support ,
--- NOTE | 2020-06-24 13:08 | ED.DCSUM_ITS ---
- ER Visit Summary Date of Service: 06/24/20 Chief Complaint: [Left foot pain with possible foreign body] History of Present Illness: The patient is a 49 M [resents to the emergency department complaining of pain in his left foot that he states started around 830 this morning. Patient states that he was walking at [employer] when he noticed the discomfort especially with weightbearing. Patient was wearing flip-flops at the time. He is not sure if something may have punctured his foot. Patient currently undergoing treatment for APL.] Physical Examination: [Foot-patient has a small soft tissue swelling over the lateral aspect of the midfoot that slightly tender to palpation with some dark discoloration noted under the skin. No obvious puncture wounds noted however after cleaning the skin it appeared that there was a central opening. No cellulitis or lymphangitic streaking noted. He is neurovascular intact.] Test Results: [Rays of the left foot obtained showed no foreign bodies.] Emergency Department Course and Treatment: [Patient was offered a incision and drainage of suspected foreign body. Area of the skin sterilely draped and prepped. Wound anesthetized locally with 1% lidocaine total of 1 cc locally. Using an 11 blade a small 1 cm incision was made and with pressure I was able to express a small hair-like foreign body from the wound. Clean dressing applied.] Treatment Plan: [Patient to monitor for signs of infection. Patient to follow- up with podiatry garage construction equipment mechanic if symptoms persist.] Disposition: [Discharged home in stable condition] Impression: [Foreign body left foot-removed] This note was generated with [employer] dictation software. It may contain incorrect words, spelling, and punctuation that were not noted in review of the chart prior to signing ED Disposition - Plan for ED Patient: Referrals: Eugene Herman MD [Primary Care Provider] -
--- NOTE | 2020-06-24 13:11 | ED.DEP ---
ED Disposition - Plan for ED Patient: Instructions: ED Foreign Body Soft Tissue Removed Referrals: Eugene Herman MD [Primary Care Provider] - Frankie Beaver DPM [STAFF PHYSICIAN] - 3-5 Days
[2020-06-24 13:25] VITALS: BP 126/68; PULSE 85; RESP 14; O2SAT 98
== END 2020-06-24 13:26 | disposition home or self-care (01) ==
LOC: ED 11:33
PROVIDERS: Emergency Provider Emergency Medicine; PCP Family Medicine
DX: S90.852A Superficial foreign body, left foot, initial encounter (principal); Y93.01 Activity, walking, marching and hiking; C92.40 Acute promyelocytic leukemia, not having achieved remission; Z79.01 Long term (current) use of anticoagulants; Z79.899 Other long term (current) drug therapy
CPT/HCPCS: 10120; 73630; 99283

== ENCOUNTER → 2021-01-01 | Outpatient (CLI) | payer BC, SELFPAY ==
[2021-01-01 16:11] LABS: Pathologist Comment May follow
[2021-01-01 18:49] LABS: Synovial Fld Mononuclear WBC % 95.3 %; Synovial Fld Polynuclear WBC % 4.7 %
[2021-01-01 20:27] LABS: AUTO B FLUID DILUENT BKGD CT WBC <0.1 RBC <0.01 (W<.1,R<.01); CRYSTALS, BODY FLUID See PATH REV; RBC /Synovial Fluid 14 /mm3 (0)
[2021-01-01 20:28] LABS: Appearance /Synovial Fluid Sl hazy (CLEAR); Body Fluid QC Type(s) BF3Q,BF4Q; Color / Synovial Fluid Yellow (Pale Yellow); Lymph 3 %; Monocyte /Synovial Fluid 95 %; Neutrophil 2 % (0-25); Source / Synovial Fluid RT KNEE; Source- Body Fluid SYNOVIAL
[2021-01-02 13:51] LABS: Pathologist Review Reviewed
[2021-01-03 14:24] LABS: GLUCOSE, SYNOVIAL FLUID 93 mg/dL (.); PROTEIN, SYNOVIAL FLUID 3.2 g/dL (.)
== END | disposition home or self-care (01) ==
PROVIDERS: PCP Family Medicine; Visit Provider Orthopaedic Surgery
DX: M23.300 Other meniscus derangements, unspecified lateral meniscus, right knee (principal)
CPT/HCPCS: 82945; 84157; 87070; 87075; 87205; 89050; 89051; 89060

== ENCOUNTER 2021-05-22 15:08 | Emergency (ER) | payer OTHER, SELFPAY ==
[2021-05-22 15:09] VITALS: BP 159/83; PULSE 80; RESP 16; TEMP 35.7; O2SAT 95; BMI 33.6
--- NOTE | 2021-05-22 15:32 | VDLE_ITS ---
Reason For Study: SWELLING RIGHT LEFT GSV is normal. GSV is normal. CFV is compressible, spontaneous, phasic, CFV is compressible, spontaneous, phasic, competent and demonstrates normal competent, and demonstrates normal augmentation. augmentation. FV is compressible, spontaneous, phasic, FV is compressible, spontaneous, phasic, competent and demonstrates normal competent and demonstrates normal augmentation. augmentation. POP V is compressible, spontaneous, phasic, POP V is compressible, spontaneous, phasic, competent and demonstrates normal competent and demonstrates normal augmentation. augmentation. T/P Trunk is compressible. T/P Trunk is compressible. PTV is compressible. PTV is compressible. RT PerV is compressible. LT PerV is compressible. Procedure Exam performed portable in ED. A preliminary report was called and/or faxed to ED. VL/Venous Duplex US - Abdirahman Extrem Interpretation Summary Deep veins of the lower extremities are bilaterally patent and compressible seg mentally. There is no evidence of deep vein thrombosis on either side. Valvular competence appears in tact within the proximal deep venous systems bilaterally. The great saphenous veins appear bila terally patent and compressible segmentally. Ordering Physician: Karlos Serna Referring Physician: [place] HOU Performed By: Brigid Godoy, BERTO, RVT
--- NOTE | 2021-05-22 15:33 | EX.ED.DYSGE1 ---
HPI History of Present Illness Chief Complaint: Abn Labs Detail of Chief Complaint: Bilateral lower leg swelling with elevated D-dimer. Informant: patient Onset/Context/Timing Onset: Yesterday Context: Gradual Onset Timing: Intermittent Current Severity: Mild Maximum Severity: Mild Narrative Narrative: 50-year-old male history of acute primary myelocytic leukemia. He just has not felt well the last few weeks just decreased energy. Said yesterday noticed some mild lower extremity edema. Denies leg pain. Denies calf pain. Denies shortness of breath or chest pain. No hemoptysis. Currently he is on Eliquis. When he was first diagnosed with his leukemia last year he had lower extremity swelling. He has had DVTs and PEs with his cancer. Currently he is off of the chemotherapy. Prior similar symptoms: Yes Recent Illness/Hospitalization: No PFSH PFS Medical History (Updated 05/22/21 @ 16:[address] Karlos Serna MD) ACL reconstruction, right Acute promyelocytic leukemia Dyspnea Obesity (BMI 30-39.9) Osteoarthritis Peripheral neuropathy Pulmonary embolism Scoliosis Spina bifida Sprain of unspecified site of right knee, subsequent encounter Transaminitis Home Medications apixaban 5 mg tablet 5 mg PO BID #180 tab 11/10/20 [Rx Last Taken 05/22/21] Allergy/AdvReac Type Severity Reaction Status Date / Time formaldehyde AdvReac Rash Verified 05/22/21 15:11 Family History Father DVT (deep venous thrombosis) Alcoholism Sister Heart disease Atrial fibrillation Grandmother Small cell carcinoma of lung maternal Aunt Multiple myeloma maternal Uncle Colon cancer paternal Multiple myeloma maternal Unknown Brain cancer patient's father's nephew Son Autism Surgical History H/O cystoscopy H/O wisdom tooth extraction History of tonsillectomy right knee S/P ACL reconstruction s/p epididem S/P tonsillectomy Social History Smoking Status: Never smoker alcohol intake: never substance use type: does not use ROS ROS ED ROS Narrative [place] fatigued lately. Review of Systems ROS Unobtainable: Denies due to encephalopathy Constitutional Constitutional ED: Denies chills or fever(s) Eyes Eyes: Denies change in vision ENT ENT ED: Denies ear pain or rhinorrhea Cardiovascular Cardiovascular: Denies chest pain or palpitations Respiratory/Chest Respiratory/Chest: Denies cough or dyspnea Gastrointestinal Gastrointestinal: Denies abdominal pain, constipation, diarrhea, melena, nausea or vomiting Genitourinary Genitourinary ED: Denies dysuria Musculoskeletal Musculoskeletal: Denies myalgias Integumentary Denies rash Neurologic Neurologic: Denies headache(s) Psychiatric Psychiatric: Denies depression Endocrine Endocrinology: Denies polyuria Allergic/Immunologic Allergic/Immunologic ED: Denies urticaria EXAM Physical Exam Narrative Exam Narrative: 50-year-old male no acute distress. Vital signs stable afebrile. Pulse ox 95% on room air no hypoxia. HEENT exam unremarkable. Neck nontender. Lungs clear to auscultation bilaterally. Heart regular rhythm no murmur. Abdomen soft nontender normal bowel sounds no peritoneal signs. Extremities moves all 4. Currently calves are nontender no edema no cords. There is no swelling in either upper or lower extremity. Abnormal range of motion normal strength. Back nontender. Neurologically is awake alert with no focal motor deficits. Const Vital Signs: 05/22/21 15:09 05/22/21 16:14 Temperature 96.3 F L Temperature Source Temporal Pulse Rate 80 Respiratory Rate 16 Respiratory Effort Normal Non-Labored Respiratory Pattern Normal Blood Pressure 159/83 H Blood Pressure Mean 108 Pulse Ox 95 Oxygen Delivery Method Room Air Positive well nourished and well developed; Negative for unkempt General Appearance ED: well developed and NAD; Negative for unkempt HEENT Reports moist mucous membranes Negative for trauma or tenderness Eyes PERRL and EOMs intact bilaterally Neck no lymphadenopathy, supple and no JVD General: Negative for tenderness Chest Wall inspection of chest normal and palpation of chest normal Resp normal respiratory effort and clear to auscultation bilaterally Cardio regular rate, regular rhythm, S1 normal heart sound, S2 normal heart sound and no murmurs GI normal to inspection, nondistended, normoactive bowel sounds, non-tender, non-distended and no masses Auscultation: normoactive bowel sounds Palpation: soft; Negative for tender or guarding Back/Spine no CVA tenderness General Back: Negative for CVA tenderness Cervical Spine: Negative for cervical spine tenderness Extremity normal to inspection General Extremety ED: Negative for edema or tenderness General Extremity: Negative for edema Neuro oriented x3, CN's II-XII intact bilaterally and no sensory deficits noted Sensorium / Orientation: alert; Negative for orientation impaired, lethargic or stuporous Motor Exam: strength 5/5 throughout Psych mental status grossly normal Appearance: Negative for unkempt Skin no rashes or lesions noted and no wounds MDM MDM MDM Narrative Medical decision making narrative: Middle-age male history of treatment for acute leukemia within the last year. Currently is off chemotherapy. He is on Eliquis for prior blood clots in his legs and legs while being treated. States has been doing well the last couple weeks he just kind of felt decreased energy. Said yesterday noticed swelling in both legs. It is resolved today. He denies any chest pain or shortness of breath. They did labs on him today through the oncology office his CBC and chemistry were unremarkable. His D-dimer was elevated I will obtain a ultrasound of both legs. His exam at this time is totally benign. Noninvasive study of both lower extremities showed no DVT as read by the tree trimming line technician and told me. Repeat exam patient is doing well at 4:20 PM will be discharged home. Discharge Plan Triage Chief Complaint: Abn Labs ED Provider: Karlos Serna Dx/Rx/DC Orders Clinical Impression: Edema, peripheral Prescriptions: No Action apixaban 5 mg tablet 5 mg PO BID Qty: 180 RF: 2 Primary Care Provider: Eugene Herman Referrals: Eugene Herman MD [Primary Care Provider] - 1 Week if not improving Activity Restrictions/Additional Instructions: Follow-up with your primary care physician or oncologist as needed. Elevate your legs to decrease swelling. Your labs from earlier today were unremarkable other than a very minimally elevated D-dimer. The ultrasound showed no blood clots. Disposition Disposition: Home, Self Care
== END 2021-05-22 16:31 | disposition home or self-care (01) ==
PROVIDERS: Emergency Provider Emergency Medicine; PCP Family Medicine
DX: R60.9 Edema, unspecified (principal); R06.00 Dyspnea, unspecified; M79.89 Other specified soft tissue disorders; R79.89 Other specified abnormal findings of blood chemistry; G62.9 Polyneuropathy, unspecified; Q05.9 Spina bifida, unspecified; E66.9 Obesity, unspecified; Z79.01 Long term (current) use of anticoagulants; Z85.6 Personal history of leukemia; Z86.718 Personal history of other venous thrombosis and embolism; Z86.711 Personal history of pulmonary embolism
CPT/HCPCS: 93970; 99282